=== PATIENT | male | born 1965 | race Caucasian/White ===

== ENCOUNTER 2019-04-13 21:38 | Inpatient (IN) | payer MEDICAID ==
[~2019-04-13] VITALS: Ht 157.5 cm; Wt 59.9 kg
[2019-04-13 22:20] VITALS: BP 129/63
--- NOTE | 2019-04-13 22:23 | NUR ---
TO LOBBY A/W BED AMBULATORY
--- NOTE | 2019-04-13 23:42 | NUR ---
PT AMBULATED TO BED 03.
--- NOTE | 2019-04-13 23:52 | NUR ---
53/M PRESENTS TO ED WITH FAMILY/FRIEND, C/O / LOWER ABD PAIN TO BACK, X2 DAYS. PT REPORTS SIMILAR SYMPTOMS 4 MONTHS AGO. REPORTS NORMAL BM, LBM TONIGHT BUT REPORTS STRAINING. PT DENIES FEVER, N/V/D, OR DYSURIA. PT AWAKE AND ALERT, SKIN NORMAL WARM AND DRY, RR EVEN AND UNLABORED. HX HTN
[2019-04-14] MEDS ORDERED: NACL 0.9% 500 ML IV ONE (00:02)
[2019-04-14] MEDS ORDERED: KETOROLAC 30 MG/ML VIAL IVP ONE (00:05)
[2019-04-14 00:17] LABS: BASOPHILS # (AUTO) 0.1 K/uL (0.00-0.22); BASOPHILS % (AUTO) 0.6 % (0.0-2.0); EOSINOPHILS # (AUTO) 0.2 K/uL (0-0.4); EOSINOPHILS % (AUTO) 1.3 % (0.0-4.0); HEMATOCRIT 45.5 % (36-52); HEMOGLOBIN 15.1 g/dL (12.0-18.0); LYMPHOCYTES # (AUTO) 0.7 K/uL (2.0-11.5); MEAN CORPUSCULAR HEMOGLOBIN 29 pg (27-31); MEAN CORPUSCULAR HGB CONC 33 g/dL (33-37); MONOCYTES # (AUTO) 1.4 K/uL (0.8-1.0); NEUTROPHILS % (AUTO) 83.4 % (42.2-75.2); PLATELET COUNT (AUTO) 228 K/uL (140-450); RED BLOOD CELL COUNT(AUTO) 5.29 MIL/uL (4.20-6.10); RED CELL DISTRIBUTION WIDTH 13.6 % (11.6-13.7); WHITE BLOOD COUNT (AUTO) 14.4 K/uL (4.8-10.8)
[2019-04-14 00:29] LABS: ANION GAP 16.9 (8-16); CARBON DIOXIDE 22.1 mmol/L (21-32); CREATININE 1.7 mg/dL (0.7-1.3)
[2019-04-14 00:34] LABS: ALBUMIN 3.7 g/dL (3.4-5.0); TOTAL BILIRUBIN 0.6 mg/dL (0.0-1.0)
[2019-04-14 00:37] LABS: LYMPHOCYTES % (AUTO) 4.7 % (20.5-51.1)
--- NOTE | 2019-04-14 01:00 | NUR ---
PT IN BED RESTING, VSS AT THIS TIME.
[2019-04-14] MEDS ORDERED: HYDROcodone/APAP 7.5/325 MG 1 TAB PO PRN (01:40)
[2019-04-14] MEDS ORDERED: ONDANSETRON 4 MG/2 ML VIAL IM/IVP PRN (01:40)
[2019-04-14] MEDS ORDERED: ACETAMINOPHEN 325 MG TAB PO PRN (01:40)
[2019-04-14] MEDS ORDERED: DOCUSATE SODIUM 100 MG GELCAP PO PRN (01:40)
[2019-04-14] MEDS ORDERED: KETOROLAC 30 MG/ML VIAL IVP PRN (01:40)
[2019-04-14] MEDS ORDERED: MORPHINE SULFATE 2 MG/ML SYR IVP PRN (01:40)
[2019-04-14 02:01] VITALS: BP 126/68
--- NOTE | 2019-04-14 02:01 | NUR ---
REPORT RECEIVED FROM ED NURSE AT BEDSIDE. PT IN STABLE CONDITION. AAOX4. INTRODUCED SELF TO PT. BOARD UPDATED. NO COMPLAINTS OF PAIN. NO SOB. AFEBRILE. PT IS AMBULATORY. IV SITE L AC 20G RUNNING NS@125ML/HR PATENT AND INTACT. SKIN WARM, DRY, AND INTACT WITH NO OPEN WOUNDS. BED LOCKED IN LOW POSITION. CALL [place] WITHIN REACH. SAFETY PRECAUTION IN PLACE. ALL NEEDS MET AT THIS TIME.
--- NOTE | 2019-04-14 02:03 | NUR ---
Patient will be admitted to care of DR MAURER. Admited to TELEMETRY ROOM 112B. Belongings list completed. BEDSIDE REPORT GIVEN TO CHERI DUFFY.
[2019-04-14] MEDS ORDERED: PNEUMOCOCCAL VACCINE 23 MCG/0.5 ML VIAL IMVAC PRN (02:35)
[2019-04-14 02:38] LABS: PROTHROMBIN TIME 9.3 secs (10.8-13.4)
[2019-04-14] MEDS: TAMSULOSIN 0.4 MG CAP PO SCH ×2 (02:39→09:22)
--- NOTE | 2019-04-14 02:39 | NUR ---
FLOMAX GIVEN PO. PT TOLERATED WELL.
[2019-04-14 02:50] LABS: CHOL/HDL RATIO 4.8 (1-4.5); MAGNESIUM 2.1 mg/dL (1.8-2.4); PHOSPHORUS 3.6 mg/dL (2.5-4.9); THYROID STIMULATING HORMONE 0.78 uIU/mL (0.34-3.74)
[2019-04-14] MEDS ORDERED: TAMSULOSIN 0.4 MG CAP ONE (02:52)
[2019-04-14] MEDS: NACL 0.9% 1,000 ML IV SCH ×3 (03:30→18:09)
--- NOTE | 2019-04-14 03:30 | NUR ---
DIETER LEOS AND RUNNING. PT TOLERATING WELL.
[2019-04-14] MEDS ORDERED: cefTRIAXone 1,000 MG VIAL ONE (03:38)
[2019-04-14 04:00] VITALS: BP 122/70
[2019-04-14 04:06] LABS: BARBITURATE, URINE NEG. ng/ml (NEG <=200); BENZODIAZEPINE, URINE NEG. ng/mL (NEG <=200); CANNABINOID, URINE NEG. ng/mL (NEG <=50); COCAINE, URINE NEG. ng/mL (NEG <=300); OPIATE, URINE NEG. ng/mL (NEG <=2000); PHENCYCLIDINE SCREEN,URINE NEG. ng/mL (NEG <=25)
[2019-04-14 04:35] LABS: APPEARANCE,URINE CLEAR (CLEAR); BILIRUBIN,URINE NEGATIVE (NEGATIVE); BLOOD, URINE 3+ (NEGATIVE); COLOR,URINE YELLOW (YELLOW); LEUKOCYTE ESTERASE ,URINE 1+ (NEGATIVE); NITRITE, URINE NEGATIVE (NEGATIVE); PH,URINE 5.5 (5.0-9.0); UGLUCOSE NEGATIVE (NEGATIVE)
--- NOTE | 2019-04-14 04:40 | NUR ---
PT SLEEPING COMFORTABLY BUT AROUSABLE. NO S/S OF DISTRESS NOTED. WILL CONTINUE TO MONITOR.
[2019-04-14 05:10] LABS: RBC,URINE TOO NUMEROUS TO COUN /HPF (0-5); URIC ACID CRYSTALS,URINE 0-10 /HPF (None Seen)
--- NOTE | 2019-04-14 06:30 | NUR ---
PT SLEEPING COMFORTABLY BUT AROUSABLE. PT IN STABLE CONDITION.
[2019-04-14 06:48] LABS: BASOPHILS % (AUTO) 0.5 % (0.0-2.0); EOSINOPHILS # (AUTO) 0.2 K/uL (0-0.4); EOSINOPHILS % (AUTO) 2.4 % (0.0-4.0); HEMATOCRIT 41.6 % (36-52); HEMOGLOBIN 13.7 g/dL (12.0-18.0); LYMPHOCYTES # (AUTO) 1.2 K/uL (2.0-11.5); LYMPHOCYTES % (AUTO) 11.4 % (20.5-51.1); MEAN CORPUSCULAR HEMOGLOBIN 29 pg (27-31); MEAN CORPUSCULAR HGB CONC 33 g/dL (33-37); MEAN CORPUSCULAR VOLUME 87.1 fL (80-94); MONOCYTES # (AUTO) 1.1 K/uL (0.8-1.0); MONOCYTES % (AUTO) 10.2 % (1.7-9.3); NEUTROPHILS % (AUTO) 75.5 % (42.2-75.2); PLATELET COUNT (AUTO) 213 K/uL (140-450); RED BLOOD CELL COUNT(AUTO) 4.77 MIL/uL (4.20-6.10); RED CELL DISTRIBUTION WIDTH 13.9 % (11.6-13.7); WHITE BLOOD COUNT (AUTO) 10.6 K/uL (4.8-10.8)
--- NOTE | 2019-04-14 07:20 | NUR ---
RECEIVED BEDSIDE REPORT FROM TRADING ASSISTANT NURSE FOR CONTINUITY OF CARE. PATIENT IS RESTING ON BED. AROUSABLE TO VOICE. PATIENT IS AAOX4. RESPIRATION EVEN AND UNLABORED ON RA. PATIENT DENIED PAIN AND ANY NO SIGNS OF DISTRESS NOTED. IV ON LAC 20, CLEAN AND INTACT, INFUSING PER MD ORDER. SKIN CLEAN AND DRY. PATIENT IS CONTINENT AND ABLE TO AMBULATE WITH STEADY GAIT. INSTRUCTED PATIENT TO USE THE STRAIN IN THE BATHROOM TO COLLECT THE STONE WHEN HE HAS URINE AND PATIENT VERBALIZED OK. TELE MONITOR ATTACHED. SAFETY MEASURES IN PLACE. BED IN LOW POSITION AND CALL LIGHT WITHIN REACH. INSTRUCTED PATIENT TO USE THE CALL LIGHT FOR ANY ASSISTANCE AND PATIENT WAS AWARE.
[2019-04-14 08:00] VITALS: BP 111/72
[2019-04-14 08:08] LABS: MAGNESIUM 1.9 mg/dL (1.8-2.4); PHOSPHORUS 3.9 mg/dL (2.5-4.9)
--- NOTE | 2019-04-14 08:21 | NUR ---
PATIENT HAS BEEN SCREENED AND CATEGORIZED LOW NUTRITION RISK. PATIENT WILL BE SEEN WITHIN 7 DAYS OF ADMISSION. 04/20/[address]
[2019-04-14 08:22] LABS: ANION GAP 13.8 (8-16); CARBON DIOXIDE 21.8 mmol/L (21-32); CREATININE 1.3 mg/dL (0.7-1.3); POTASSIUM 3.6 mmol/L (3.5-5.1)
[2019-04-14] MEDS: LACTOBACILLUS RHAMNOSUS GG 1 EACH CAP PO SCH (09:22)
--- NOTE | 2019-04-14 09:22 | NUR ---
ADMINISTERED MEDS PER MD ORDER, PATIENT TOLERATED WELL. MEDS EDUCATION AND SIDE EFFECTS PROVIDED TO PATIENT AND PATIENT VERBALIZED UNDERSTANDING. PATIENT AWAKE AND TALKING TO JUDE AT BEDSIDE. DENIED PAIN. NO SIGNS OF DISTRESS NOTED. SAFETY MEASURES IN PLACE. TELE MONITOR ATTACHED. BED IN LOW POSITION AND CALL LIGHT WITHIN REACH. INSTRUCTED PATIENT TO USE THE CALL LIGHT FOR ANY ASSISTANCE AND PATIENT WAS AWARE.
--- NOTE | 2019-04-14 10:40 | NUR ---
PATIENT REQUESTED FOR AN EXTRA PILLOW, PROVIDED REQUEST. PATIENT IS AWAKE AND TALKING TO JUDE AT BEDSIDE. DENIED PAIN AND NV. NO SIGNS OF DISTRESS NOTED. SAFETY MEASURES IN PLACE. BED IN LOW POSITION AND CALL LIGHT WITHIN REACH. INSTRUCTED PATIENT TO USE THE CALL LIGHT FOR ANY ASSISTANCE AND PATIENT WAS AWARE.
--- NOTE | 2019-04-14 11:16 | NUR ---
EMPTIED 200ML FROM URANAL THROUGH STRAIN FOR CALCULI, NO CALCULI OBSERVED. PATIENT AWAKE AND TALKING TO JUDE AT BEDSIDE. DENIED PAIN, NAUSEA AND VOMITING. NO SIGNS OF DISTRESS NOTED. SAFETY MEASURES IN PLACE. BED IN LOW POSITION AND CALL LIGHT WITHIN REACH. INSTRUCTED PATIENT TO USE THE CALL LIGHT FOR ANY ASSISTANCE AND PATIENT WAS AWARE.
--- NOTE | 2019-04-14 13:40 | NUR ---
PATIENT IS SITTING UP ON EDGE OF BED AND TALKING TO FAMILY MEMBERS JUDE AND DAUGHTER BY BEDSIDE. DENIED PAIN, NAUSEA AND VOMITING. EMPTIED URANAL THROUGH STRAIN FOR CALICULI, NO CALICULI OBSERVED. NO SIGNS OF DISTRESS NOTED. SAFETY MEASURES IN PLACE. BED IN LOW POSITION AND CALL LIGHT WITH IN REACH. INSTRUCTED PATIENT TO USE THE CALL LIGHT FOR ANY ASSISTANCE AND PATIENT WAS AWARE.
--- NOTE | 2019-04-14 15:38 | NUR ---
PATIENT IS AWAKE AND TALKING TO JUDE AT BEDSIDE. DENIED PAIN, NAUSEA AND VOMITING. NO SIGNS OF DISTRESS NOTED. SAFETY MEASURES IN PLACE. BED IN LOW POSITION AND CALL LIGHT WITHIN REACH. INSTRUCTED PATIENT TO USE THE CALL LIGHT FOR ANY ASSISTANCE OR QUESTION, PATIENT VERBALIZED OK.
[2019-04-14 16:00] VITALS: BP 110/64
--- NOTE | 2019-04-14 17:14 | NUR ---
PATIENT IS RESTING ON BED AND AROUSABLE TO VOICE. JUDE IS BY BEDSIDE. DENIED PAIN, NAUSEA, AND VOMITING. NO SIGNS OF DISTRESS NOTED. SAFETY MEASURES IN PLACE. BED IN LOW POSITION AND CALL LIGHT WITHIN REACH. INSTRUCTED PATIENT TO USE THE CALL LIGHT FOR ANY ASSISTANCE AND PATIENT WAS AWARE.
--- NOTE | 2019-04-14 18:10 | NUR ---
PATIENT AWAKE AND SITTING ON CHAIR NEXT TO HIS BED. DENIED PAIN, NAUSEA, AND VOMITING. NO SIGNS OF DISTRESS NOTED. JUDE BY BEDSIDE. SAFETY MEASURES IN PLACE. BED IN LOW POSITION AND CALL LIGHT WITHIN REACH. INSTRUCTED PATIENT AND JUDE TO USE THE CALL LIGHT FOR ANY ASSISTANCE OR ANY QUESTION, BOTH VERBALIZED OK.
--- NOTE | 2019-04-14 19:16 | NUR ---
ENDORSED PATIENT AT BEDSIDE TO INSPECTOR SHEET METAL PARTS NURSE FOR CONTINUITY OF CARE. PATIENT AWAKE AND RESTING ON BED AT THIS TIME. NO SIGNS OF DISTRESS NOTED. PATIENT IS IN STABLE CONDITION. SAFETY MEASURES IN PLACE. BED IN LOW POSITION AND CALL LIGHT WITHIN REACH.
--- NOTE | 2019-04-14 19:17 | NUR ---
REPORT RECEIVED FROM AM NURSE AT BEDSIDE. PT IN STABLE CONDITION. AAOX4. INTRODUCED SELF TO PT. BOARD UPDATED. NO COMPLAINTS OF PAIN. NO SOB. AFEBRILE. PT IS AMBULATORY. PT ASKED TO STRAIN URINE FOR KIDNEY STONES. IV SITE L AC 20G RUNNING NS@125ML/HR PATENT AND INTACT. SKIN WARM, DRY, AND INTACT WITH NO OPEN WOUNDS. BED LOCKED IN LOW POSITION. CALL [place] WITHIN REACH. SAFETY PRECAUTION IN PLACE. ALL NEEDS MET AT THIS TIME.
--- NOTE | 2019-04-14 20:30 | NUR ---
PT AWAKE AND ALERT WITH DAUGHTER AT BEDSIDE. NO S/S OF DISTRESS NOTED. WILL CONTINUE TO MONITOR.
--- NOTE | 2019-04-14 21:30 | NUR ---
PT COMPLAINS THAT HIS ARM IS SWELLING WHERE THE IV SITE IS. IV FLUIDS STOPPED. TOLD PATIENT TO KEEP HIS ARM ELEVATED TO REDUCE THE SWELLING.
--- NOTE | 2019-04-14 23:15 | NUR ---
PT SLEEPING COMFORTABLY BUT AROUSABLE. NO S/S OF DISTRESS NOTED. NO COMPLAINTS OF PAIN. NO SOB. AFEBRILE. WILL CONTINUE TO MONITOR.
[2019-04-15] VITALS: BP 106/58
--- NOTE | 2019-04-15 00:50 | NUR ---
PT SLEEPING COMFORTABLY BUT AROUSABLE. NO S/S OF DISTRESS NOTED. RESPIRATIONS EVEN, UNLABORED, AND WNL. WILL CONTINUE TO MONITOR.
--- NOTE | 2019-04-15 02:10 | NUR ---
PT SLEEPING COMFORTABLY BUT AROUSABLE. NO S/S OF DISTRESS NOTED. NO COMPLAINTS OF PAIN. NO SOB. AFEBRILE. WILL CONTINUE TO MONITOR.
[2019-04-15] MEDS: NACL 0.9% 1,000 ML IV SCH ×2 (02:35→10:40)
--- NOTE | 2019-04-15 04:05 | NUR ---
PT SLEEPING COMFORTABLY. NO S/S OF DISTRESS NOTED. WILL CONTINUE TO MONITOR.
--- NOTE | 2019-04-15 05:10 | NUR ---
PT SLEEPING COMFORTABLY BUT AROUSABLE. NO S/S OF DISTRESS NOTED. NO COMPLAINTS OF PAIN. NO SOB. AFEBRILE. WILL CONTINUE TO MONITOR.
[2019-04-15 06:07] LABS: T4 (THYROXINE) 6.1 ug/dL (4.5-12.0)
--- NOTE | 2019-04-15 06:20 | NUR ---
PT SLEEPING COMFORTABLY BUT AROUSABLE. NO S/S OF DISTRESS NOTED. PT POSSIBLE TO D/C TODAY. PT IN STABLE CONDITION.
[2019-04-15 07:00] LABS: BASOPHILS # (AUTO) 0.1 K/uL (0.00-0.22); BASOPHILS % (AUTO) 0.7 % (0.0-2.0); EOSINOPHILS # (AUTO) 0.4 K/uL (0-0.4); EOSINOPHILS % (AUTO) 5.1 % (0.0-4.0); HEMATOCRIT 40.1 % (36-52); HEMOGLOBIN 13.3 g/dL (12.0-18.0); LYMPHOCYTES # (AUTO) 1.8 K/uL (2.0-11.5); LYMPHOCYTES % (AUTO) 21.2 % (20.5-51.1); MEAN CORPUSCULAR HEMOGLOBIN 29 pg (27-31); MEAN CORPUSCULAR HGB CONC 33 g/dL (33-37); MEAN CORPUSCULAR VOLUME 86.9 fL (80-94); MONOCYTES # (AUTO) 0.8 K/uL (0.8-1.0); MONOCYTES % (AUTO) 9.8 % (1.7-9.3); NEUTROPHILS # (AUTO) 5.3 K/uL (1.8-7.7); NEUTROPHILS % (AUTO) 63.2 % (42.2-75.2); PLATELET COUNT (AUTO) 204 K/uL (140-450); RED BLOOD CELL COUNT(AUTO) 4.61 MIL/uL (4.20-6.10); RED CELL DISTRIBUTION WIDTH 13.6 % (11.6-13.7); WHITE BLOOD COUNT (AUTO) 8.3 K/uL (4.8-10.8)
[2019-04-15 07:06] LABS: CARBON DIOXIDE 22.9 mmol/L (21-32); POTASSIUM 3.9 mmol/L (3.5-5.1)
--- NOTE | 2019-04-15 07:10 | NUR ---
RECEIVED BEDSIDE REPORT FROM [employer] OPERATOR NURSE FOR CONTINUITY OF CARE. PATIENT IS RESTING ON BED AT THIS TIME. AROUSABLE TO VOICE. PATIENT IS AOX4. PATIENT IS CALM AND COOPERATIVE AND FOLLOW COMMAND. RESPIRATION EVEN AND UNLABORED ON RA. DENIED PAIN, NAUSEA AND VOMITING. NO SIGNS OF DISTRESS NOTED. IV CLEAN AND DRY, INFUSING PER MD ORDER. PATIENT IS ABLE TO AMBULATE WITH STEADY AND CONTINENT. SKIN CLEAN AND DRY. SAFETY MEASURES IN PLACE. BED IN LOW POSITION AND CALL LIGHT WITHIN REACH. INSTRUCTED PATIENT TO USE THE CALL LIGHT FOR ANY ASSISTANCE AND PATIENT VERBALIZED UNDERSTANDING.
[2019-04-15 08:00] VITALS: BP 111/49
[2019-04-15] MEDS ORDERED: TAMS0.4C96 PO (08:10)
--- NOTE | 2019-04-15 08:10 | NUR ---
INFORMED PATIENT THAT HE WILL BE DISCHARGE FROM THE HOSPITAL TODAY. PER PATIENT, HE WILL CONTACT HIS AND FIND OUT WHEN SHE IS ABLE TO PICK HIM UP FROM THE HOSPITAL THEN HE WILL LET ME KNOW. INFORMED PATIENT THAT DISCHARGE PAPER WILL BE PREPARED AND READY WHEN ARRIVES FOR AERIAL SURVEY TECHNICIAN. PATIENT VERBALIZED OK. PATIENT IS AWAKE AND WATCHING TV ON BED AT THIS TIME. NO SIGNS OF DISTRESS NOTED. SAFETY MEASURES IN PLACE. BED IN LOW POSITION AND CALL LIGHT WITHIN REACH.
--- NOTE | 2019-04-15 08:34 | NUR ---
SPOKE WITH PHARMACIST ANGELICA THAT DR VASQUEZ WANTS PATIENT TO RECEIVE THE DOSE OF ROCEPHIN BEFORE DISCHARGE BUT ROCEPHIN WAS SCHEDULE AT MIDNIGHT AROUND 0200 AND ASKED WOULD IT BE POSSIBLE TO CHANGE IT TO SOONER TIME. PER ANGELICA, SHE CAN CHANGE IT TO 1400 FOR TODAY. INFORMED PATIENT THAT HE WILL BE GETTING ROCEPHIN AT 1400 AND HE WILL BE DISCHARGE AFTER. PATIENT WAS AWARE AND SAID OK. PATIENT IS AWAKE AND LOOKING AT HIS PHONE AT THIS TIME. DENIED PAIN, NAUSEA AND VOMITING. NO SIGNS OF DISTRESS NOTED. SAFETY MEASURES IN PLACE. BED IN LOW POSITION AND CALL LIGHT WITHIN REACH.
[2019-04-15] MEDS: TAMSULOSIN 0.4 MG CAP PO SCH (08:44)
[2019-04-15] MEDS: LACTOBACILLUS RHAMNOSUS GG 1 EACH CAP PO SCH (08:44)
--- NOTE | 2019-04-15 08:44 | NUR ---
ADMINISTERED MEDS PER MD ORDER, PATIENT TOLERATED WELL. EDUCATED PATIENT ON MEDS AND MED SIDE EFFECTS, ANSWERED ALL PATIENT'S QUESTIONS, PATIENT VERBALIZED UNDERSTANDING. PATIENT AWAKE AND LOOKING AT HIS PHONE. DENIED PAIN, NAUSEA AND VOMITING. NO SIGNS OF DISTRESS NOTED. SAFETY MEASURES IN PLACE. BED IN LOW POSITION AND CALL LIGHT WITHIN REACH. INSTRUCTED PATIENT TO USE THE CALL LIGHT FOR ANY ASSISTANCE AND PATIENT WAS AWARE.
--- NOTE | 2019-04-15 09:35 | NUR ---
PATIENT AWAKE AND TALKING TO JUDE AT BEDSIDE. DENIED PAIN, NAUSEA AND VOMITING. NO SIGNS OF DISTRESS NOTED. SAFETY MEASURES IN PLACE. BED IN LOW POSITION AND CALL LIGHT WITHIN REACH. INSTRUCTED PATIENT TO USE THE CALL LIGHT FOR ANY ASSISTANCE OR QUESTION, AND PATIENT SAID OK.
--- NOTE | 2019-04-15 10:40 | NUR ---
PATIENT AWAKE AND TALKING TO JUDE AND DAUGHTER AT BEDSIDE. DENIED PAIN, NAUSEA AND VOMITING. NO SIGNS OF DISTRESS NOTED. SAFETY MEASURES IN PLACE. BED IN LOW POSITION AND CALL LIGHT WITHIN REACH. INSTRUCTED PATIENT TO USE THE CALL LIGHT FOR ANY ASSISTANCE AND PATIENT WAS AWARE.
--- NOTE | 2019-04-15 11:30 | NUR ---
PATIENT AWAKE AND TALKING TO LEONORA AT BEDSIDE. DENIED PAIN, NAUSEA AND VOMITING. PATIENT REQUESTED FOR AN ORANGE JUICE, PROVIDED. NO SIGNS OF DISTRESS NOTED. SAFETY MEASURES IN PLACE. BED IN LOW POSITION AND CALL LIGHT WITHIN REACH. INSTRUCTED PATIENT TO USE THE CALL LIGHT FOR ANY ASSISTANCE OR QUESTION,PATIENT WAS AWARE.
--- NOTE | 2019-04-15 13:20 | NUR ---
PATIENT IS RESTING ON BED AT THIS TIME. DENIED PAIN, NAUSEA AND VOMITING. NO SIGNS OF DISTRESS NOTED. BY BEDSIDE. SAFETY MEASURES IN PLACE. BED IN LOW POSITION AND CALL LIGHT WITHIN REACH. INSTRUCTED PATIENT TO USE THE CALL LIGHT FOR ANY ASSISTANCE AND PATIENT WAS AWARE.
--- NOTE | 2019-04-15 14:02 | NUR ---
ADMINISTERED MED PER MD ORDER, PATIENT AWAKE AND TALKING TO LEONORA AT BEDSIDE. NO SIGNS OF DISTRESS NOTED. SAFETY MEASURES IN PLACE. BED IN LOW POSITION AND CALL LIGHT WITHIN REACH.
--- NOTE | 2019-04-15 14:13 | NUR ---
INQUIRED DR VALENCIA ABOUT THE PATIENT FOR PNA VACCINE. PER DR VALENCIA, DUE TO PATIENT'S AGE AND NO INDICATION FOR PNA VACCINE AT THIS TIME. HOLD IT. EXPLAINED TO PATIENT ABOUT THE PNA VACCINE AND PATIENT VERBALIZED UNDERSTANDING.
--- NOTE | 2019-04-15 14:35 | NUR ---
PATIENT IS CHANGING INTO HIS OWN CLOTHES AT THIS TIME. BY BEDSIDE. NO SIGNS OF DISTRESS NOTED.
--- NOTE | 2019-04-15 14:50 | NUR ---
DISCHARGE INSTRUCTION PROVIDED TO PATIENT AND LEONORA. EDUCATED PATIENT ON MD FOLLOW UP, SEEK MEDICAL HELP IN CASE OF EMERGENCY, MEDICATION REGIMEN AND SIDE EFFECTS, DISEASE MANAGEMENT, AND DIET REGIMEN. ANSWERED ALL PATIENT'S AND 'S QUESTION, ALL VERBALIZED UNDERSTANDING. REMOVED ALL ARM BANDS AND DC IV, CANNULA INTACT. PATIENT TOOK ALL HIS BELONGING. ESCORTED PATIENT TO THE LOBBY AND PATIENT IS GOING TO DC AT THIS TIME ACCOMPANY BY . PATIENT IS IN STABLE CONDITION.
== END 2019-04-15 14:50 | disposition home or self-care (01) | DRG 463 ==
LOC: MED 21:38 → MTU 04-14 01:43
PROVIDERS: ADMIT General Practice; ATTEND General Practice
DX: N13.6 Pyonephrosis (principal); N17.0 Acute kidney failure with tubular necrosis; E87.8 Other disorders of electrolyte and fluid balance, not elsewhere classified; Z83.3 Family history of diabetes mellitus; Z87.442 Personal history of urinary calculi; Z87.891 Personal history of nicotine dependence; M47.896 Other spondylosis, lumbar region
CPT/HCPCS: 36415; 71045; 80048; 80053; 80305; 81001; 82150; 83036; 83605; 83690; 83735; 83880; 84100; 84436; 84443; 84484; 85025; 85610; 85730; 87040; 87081; 87086; 93005; 96361; 96374; 99285; J0696; J1885; J7030; J7060